=== PATIENT | female | born 1950 | race Caucasian/White ===

== ENCOUNTER → 2021-04-07 | Outpatient (CLI) | payer OTHER ==
[~2021-04-07] MED LIST: ALEVE220 M1 PO; AMITRIPTYLINE H75 M1 PO; AMLODIPINE BESY10 MG PO; ASA81BEC PO; BACTRIM DS TAB1 EAC1 PO; CALCIUM CARBON500 MG PO; CEROVITE SENIO1 EACH PO; CHLORTHALIDONE25 MG PO; DICYCLOMINE HCL20 MG PO; LOPRESSOR50 PO; LOVASTATIN 20 M20 MG PO; NORCO5 PO; PEPCID AC20 MG PO; PROTONIX40 M2 PO; SINGULAIR 10 MG10 M1 PO; TERBINAFINE HC250 MG PO; TURMERIC500 M2 PO; ZINC30 M1 PO
== END ==
LOC: LAB 09:18
PROVIDERS: ATTEND Student in an Organized Health Care Education/Training Program
DX: Z01.812 Encounter for preprocedural laboratory examination (principal); Z20.822 Contact with and (suspected) exposure to COVID-19

== ENCOUNTER 2021-04-08 06:05 | Observation (INO) | payer OTHER ==
[~2021-04-08] VITALS: Ht 167.6 cm; Wt 74.8 kg
[2021-04-08] VITALS (7 sets, daily range): BP systolic 103–119; BP diastolic 54–71
[~2021-04-08 06:05] MED LIST changes: -BACTRIM DS TAB1 EAC1 PO; -NORCO5 PO
--- NOTE | 2021-04-08 07:05 | EKG ---
[address] [address] ELECTROCARDIOGRAM REPORT Name: RAÚL RIVERA Room #: [address] [place] [address].#: [id number] Admission: 04/08/21 Attend Phys: Jarrett Villafuerte, Discharge: Date of : 54 Report #: [id number] [facility] Test Date: 2021-04-08 Test Time: 06:54:54 Pat Name: RAÚL RIVERA Department: Room: [facility] Gender: F Medical Staff Services Manager: JOSE FRANCISCO : 1950 Requested By: Jarrett Villafuerte Order Number: [id number] MD: Tony Gutierres Measurements Intervals [place] Rate: 61 P: 40 NH: 191 QRS: 19 QRSD: 89 T: 39 QT: 455 QTc: 459 Interpretive Statements Sinus rhythm Low voltage, precordial leads No previous ECG available for comparison Electronically Signed On 04-08-2021 7:05:07 CDT by Tony Gutierres [email or web address] <ELECTRONICALLY SIGNED> By: Tony Gutierres MD, [facility] 04/08/21 0705 [id number] Tony Gutierres MD, FACC /EPI
[2021-04-08 07:26] LABS: HEMATOCRIT 37.6 % (37.0-47.0); MCH 29.9 pg (26.0-34.0); MCHC 34.5 g/dL (28.0-37.0); MCV 86.5 fL (80.0-100.0); RBC 4.35 mil/uL (4.20-5.00); RDW 13.5 % (10.5-14.5); WBC 7.7 thou/uL (4.0-11.0)
[2021-04-08 07:29] LABS: CALCIUM 8.5 mg/dL (8.5-10.1); CREATININE 0.8 mg/dL (0.6-1.0); POTASSIUM 3.3 mmol/L (3.5-5.1)
--- NOTE | 2021-04-08 11:38 | NUR ---
ASSUMED PT CARE AT 1100 FROM PACU. PT IS ALERT & ORIENTED X4. PT HAS IV SITES ON RAC AND LFA SALINE LOCKED. PT IS ON ROOM AIR. FINISHED ADMISSION. NO C/O OF PAIN. PT C/O OF ITCHING AND GIVEN BENADRYL IV PUSH. LAST BM WAS YESTERDAY. PT HAS 6 LAP SITES WITH STERISTRIP CLEAN, DRY AND INTACT. PT HAD LAP HIATAL HERNIA REPAIR WITH LYNX THIS AM. PT AT THE BEDSIDE. PT ON THE BED, BED ON THE LOWEST POSITION, SIDE RAILS UP, CALL LIGHT WITHIN REACH. WILL CONTINUE TO MONITOR PT. FOLLOW POC.
--- NOTE | 2021-04-09 03:07 | NUR ---
Assumed care on 04/08/21 @ 1900, VSS IV sites R AC and L FA saline locked, c/d/i without r/i/h. Respirations clear and unlabored on Room Air ABD N x4Q over a round abdomen. Reports gassy feeling, Zofran provided. Reports pain, [place] 5/325 provided for ABD pain of 6/10. Follow up assessment noted to be sleeping, bed in low position with side rails up and call light within reach.
[2021-04-09 07:00] VITALS: BP 122/61
[2021-04-09 11:23] LABS: URINE BILIRUBIN NEGATIVE (Negative); URINE BLOOD NEGATIVE (Negative); URINE CLARITY CLEAR; URINE COLOR YELLOW; URINE GLUCOSE-RANDOM* NEGATIVE (Negative); URINE KETONES NEGATIVE (Negative); URINE LEUKOCYTES NEGATIVE (Negative); URINE NITRITE NEGATIVE (Negative); URINE PROTEIN (DIPSTICK) NEGATIVE (Negative); URINE UROBILINOGEN 0.2 E.U./dl (0.2-1.0)
--- NOTE | 2021-04-09 15:54 | NUR ---
PT C/O OF SLIGHT SOA AND STATES THAT HER ASTHMA MAY BE ACTING UP. CONTACT DR. CAMPBELL TO INFORM AND ALSO THAT PT IS TOLERATING PO WELL.
[2021-04-09] MEDS ORDERED: NORCO5 PO (16:49)
[2021-04-09] MEDS ORDERED: BACTRIM DS TAB1 EAC1 PO (16:49)
--- NOTE | 2021-04-09 17:27 | NUR ---
DISCONTINUE IV AND TELE. PT UNDERSTANDS ALL FOLLOW UP ORDER. WILL DISCHARGE TO HOME.
[2021-04-09 18:18] VITALS: BP 122/61
--- NOTE | 2021-04-12 06:51 | O ---
[facility] [place] [address] OPERATIVE REPORT Name: RAÚL RIVERA KEMI Room #: 454-P [facility] Jesús Bajwa#: [id number] Admission: 04/09/21 Attend Phys: Jarrett Villafuerte, Discharge: 04/09/21 Date of : 54 Report #: [id number] THIS REPORT FOR: cc: INDERJIT BAUER MD Physician not on staff Jarrett Villafuerte MD ~ DATE OF SERVICE: 04/08/2021 PREOPERATIVE DIAGNOSES: Hiatal hernia with severe gastroesophageal reflux disease. POSTOPERATIVE DIAGNOSES: Hiatal hernia with severe gastroesophageal reflux disease. OPERATION: Laparoscopic repair of hiatal hernia without mesh implantation with placement of LINX antireflux device. SURGEON: Jarrett Villafuerte MD ANESTHESIA: General. ESTIMATED BLOOD LOSS: Minimal. SPECIMENS: None. DESCRIPTION OF PROCEDURE: After informed consent was obtained, the patient was brought to the operating room and placed supine. SCDs were placed and working, preoperative antibiotics were administered, general anesthesia was induced. The abdomen was prepped and draped in the usual sterile fashion. Veress needle was inserted in the left upper quadrant. Pneumoperitoneum was established. A supraumbilical 5 mm trocar was placed under direct vision. Left-sided 5 mm trocar was placed. Two right-sided 5 mm trocars were placed. The patient was placed in the reverse Trendelenburg position. Incision was made in the epigastrium and a Cheri retractor was inserted. The liver was then retracted superiorly. The hiatus was visualized. The pars flaccida was grasped and incised. Cautery dissection was made up to the right jhoana, which was identified. Phrenoesophageal ligament was identified and incised. The left jhoana was identified. The small hiatal hernia was fully reduced anteriorly and posteriorly. A [place] drain was placed around the distal esophagus. I got a good length on the intra-abdominal esophagus. There was about 2 cm of intra-abdominal esophagus. Cruroplasty was then performed by using a [id number] 2-0 Ethibond suture to close the diaphragm posteriorly. This allowed good closure of the hiatal hernia without it being too tight. The [place] drain was placed between the posterior vagus nerve and the posterior [address] [address] OPERATIVE REPORT Name: RAÚL RIVERA [facility] Room #: 454-P [facility] Jesús Bajwa#: [id number] Admission: 04/09/21 Attend Phys: Jarrett Villafuerte, Discharge: 04/09/21 Date of : 54 Report #: [id number] esophagus. LINX sizer was placed. This was a size 14. The LINX was then placed around the esophagus anterior to the posterior vagus nerve. The LINX was then clasped together. It was not too loose or too tight. The retractor was then removed. The ports were removed under direct vision. The skin was then closed with 4-0 Monocryl. Incisions were dressed with Steri-Strips. COMPLICATIONS: None. DISPOSITION: The patient was taken to recovery in satisfactory condition. <ELECTRONICALLY SIGNED> By: Jarrett Villafuerte MD 04/12/21 [id number] Jarrett Villafuerte MD /nt
== END 2021-04-09 18:23 | disposition home or self-care (01) ==
LOC: OR → TBA 06:05 → OR 06:05 → 4W 06:05 → OR 09:20 → 4W 10:51 → OR 12:06 → 4W 04-09 15:47
PROVIDERS: ADMIT Surgery; ATTEND Surgery
DX: K44.9 Diaphragmatic hernia without obstruction or gangrene (principal); K21.9 Gastro-esophageal reflux disease without esophagitis; I10 Essential (primary) hypertension; E78.00 Pure hypercholesterolemia, unspecified; J45.909 Unspecified asthma, uncomplicated; K58.9 Irritable bowel syndrome, unspecified; M19.90 Unspecified osteoarthritis, unspecified site; Z79.899 Other long term (current) drug therapy
CPT/HCPCS: 50010; 50101; 50386; 50555; 51489; 52265; 52266; 53307; 53310; 56462; 56526; 56527; 56528; 57092; 58104; 58574; 58586; 58684; 62110; 62900; 70005